=== PATIENT | female | born 1945 | race Caucasian/White ===

== ENCOUNTER 2016-07-06 00:56 | Inpatient (IN) | payer MEDICARE ==
[~2016-07-06] VITALS: Ht 147.3 cm; Wt 35.7 kg
[~2016-07-06 00:56] MED LIST: ALBU2.5V11 NEB; ALBU8.5H3 IH; ALEN70TA5 PO; ALPR-475 PO; ALPR1TAB2 PO; ASPI-496 PO; CARV-39 PO; CARV12.543 PO; CHOL10003 PO; DIPHENHYDRAMINE PO; ETOP20VI IV; FLUC200T PO; GUAI118L19 PO; IPRA3AMP NEB; KRIL1CAP22 PO; LOSA50TA6 PO; MAALOX PO; MULT-658 PO; ONDA4TAB10 PO; OXYC-302 PO; OXYC5CAP4 PO; PROC5TAB40 PO; ROSU20TA PO; SUCR1ORA2 PO; [UNRECOGNIZED DRUG - OTHER] PO
[2016-07-06] MEDS ORDERED: ALBUTEROL/IPRATROPIUM 2.5MG/0.5MG, 3 ML NPPB ONE (02:30)
[2016-07-06 02:51] LABS: BLOOD UREA NITROGEN 19 mg/dL (7-18)
[2016-07-06 02:56] LABS: IS PT STATUS REG ER OR PRE ER? YES
[2016-07-06 02:57] LABS: HEMOGLOBIN 7.9 g/dL (11.7-16.4)
[2016-07-06 03:29] LABS: DIFF TOTAL CELLS COUNTED 100 CELL DIFF
[2016-07-06 03:34] LABS: ANISOCYTOSIS 1+; VERIFY COUNTS? YES
[2016-07-06 03:36] LABS: OVALOCYTES 1+; POLYCHROMASIA 1+
[2016-07-06 06:05] VITALS: BP 157/86
[2016-07-06 06:51] VITALS: BP 115/54
[2016-07-06] MEDS: ALBUTEROL SULFATE 2.5 MG/3 ML NPPB SCH ×2 (07:55→18:40)
[2016-07-06] MEDS: ALPRazolam 1MG TABLET PO PRN ×2 (08:58→17:05)
[2016-07-06] MEDS ORDERED: PROCHLORPERAZINE 5 MG TABLET PO PRN (11:30)
[2016-07-06] MEDS ORDERED: ONDANSETRON ODT 4 MG PO PRN (11:30)
[2016-07-06] MEDS ORDERED: BISACODYL 10 MG SUPP PR PRN (12:00)
[2016-07-06] MEDS ORDERED: DOCUSATE 100 MG CAPSULE PO PRN (12:00)
[2016-07-06] MEDS ORDERED: PROMETHAZINE 25 MG/ML, 1ML IM PRN (12:00)
[2016-07-06] MEDS ORDERED: MORPHINE SULFATE 4 MG/ML, 1ML IVPush PRN (12:00)
[2016-07-06] MEDS ORDERED: ACETAMINOPHEN 325 MG TABLET PO PRN (12:00)
[2016-07-06] MEDS ORDERED: POLYETHYLENE GLYCOL 17 GM PACKET PO PRN (12:00)
[2016-07-06] MEDS ORDERED: ONDANSETRON 2MG/ML, 2ML IVP PRN (12:00)
[2016-07-06] MEDS ORDERED: POTASSIUM CHLORIDE 40 MEQ in SODIUM CHLORIDE 0.9% 500 ML IV ONE (12:00)
[2016-07-06] MEDS: DOXYCYCLINE 100 MG in DEXTROSE 5% 250 ML IV SCH ×2 (12:16→23:58)
[2016-07-06] MEDS: THIAMINE 200 MG in SODIUM CHLORIDE 0.9% 50 ML IV SCH (12:16)
[2016-07-06] MEDS: SODIUM CHLORIDE 0.9% 1,000 ML IV SCH (12:16)
[2016-07-06] MEDS: methylPREDNISolone SOD SUCC 125 MG/2 ML IVPush SCH ×3 (12:17→23:58)
[2016-07-06] MEDS: ENOXAPARIN 40 MG/0.4 ML SQ SCH (12:17)
[2016-07-06] MEDS ORDERED: ALBUTEROL SULFATE 2.5 MG/3 ML ONE ×2 (13:06→18:21)
[2016-07-06 13:50] VITALS: BP 139/64
[2016-07-06] MEDS: HYDROcodone/APAP 5/325 TABLET PO PRN (14:56)
[2016-07-06] MEDS: SUCRALFATE 1 GM/10 ML UDC PO SCH ×2 (16:36→22:20)
[2016-07-06 19:30] VITALS: BP 142/80
[2016-07-06] MEDS: DRONABINOL 5 MG CAPSULE PO SCH (22:20)
[2016-07-06] MEDS: CARVEDILOL 12.5 MG TABLET PO SCH (22:20)
[2016-07-06] MEDS: TEMAZEPAM 15 MG CAPSULE PO PRN (22:20)
[2016-07-07] MEDS: SODIUM CHLORIDE 0.9% 1,000 ML IV SCH ×2 (00:03→21:05)
[2016-07-07 03:04] LABS: HEMOGLOBIN 7.2 g/dL (11.7-16.4)
[2016-07-07 03:08] LABS: DIFF TOTAL CELLS COUNTED 100 CELL DIFF
[2016-07-07] MEDS: ALPRazolam 1MG TABLET PO PRN ×3 (03:32→15:11)
[2016-07-07 03:48] LABS: ANISOCYTOSIS 1+; VERIFY COUNTS? YES
[2016-07-07 03:49] LABS: POIKILOCYTOSIS 1+
[2016-07-07 03:52] LABS: ASPARTATE AMINO TRANSFERASE 11 U/L (15-37); BLOOD UREA NITROGEN 21 mg/dL (7-18)
[2016-07-07] MEDS: methylPREDNISolone SOD SUCC 125 MG/2 ML IVPush SCH ×4 (06:01→23:35)
[2016-07-07] MEDS ORDERED: MAGNESIUM SULFATE PMX 4GM/100M 100 ML IV ONE (08:00)
[2016-07-07] MEDS: HYDROcodone/APAP 5/325 TABLET PO PRN ×3 (08:56→19:33)
[2016-07-07] MEDS: SUCRALFATE 1 GM/10 ML UDC PO SCH ×3 (08:57→21:06)
[2016-07-07 09:12] VITALS: BP 128/65
[2016-07-07] MEDS: ALBUTEROL SULFATE 2.5 MG/3 ML NPPB SCH ×3 (11:05→19:00)
[2016-07-07] MEDS: DRONABINOL 5 MG CAPSULE PO SCH ×2 (11:18→21:06)
[2016-07-07] MEDS: SENNA/DOCUSATE TABLET PO SCH (11:20)
[2016-07-07] MEDS: CARVEDILOL 12.5 MG TABLET PO SCH ×2 (11:20→21:06)
[2016-07-07] MEDS: ENOXAPARIN 40 MG/0.4 ML SQ SCH (12:00)
[2016-07-07] MEDS: DOXYCYCLINE 100 MG in DEXTROSE 5% 250 ML IV SCH ×2 (13:23→23:35)
[2016-07-07 13:41] VITALS: BP 127/70
[2016-07-07] MEDS ORDERED: MAALOX/DIPHEN/LIDO 90 ML PO PRN (16:00)
[2016-07-07] MEDS: NYSTATIN 500,000 UNITS/5 ML UDC PO SCH ×2 (17:01→21:06)
[2016-07-07] MEDS: THIAMINE 200 MG in SODIUM CHLORIDE 0.9% 50 ML IV SCH (17:04)
[2016-07-07 19:23] VITALS: BP 155/87
[2016-07-07] MEDS: TEMAZEPAM 15 MG CAPSULE PO PRN (21:06)
[2016-07-08] VITALS (9 sets, daily range): BP systolic 132–173; BP diastolic 34–94
[2016-07-08] MEDS: ALPRazolam 1MG TABLET PO PRN ×4 (03:22→20:18)
[2016-07-08 03:40] LABS: BLOOD UREA NITROGEN 22 mg/dL (7-18)
[2016-07-08] MEDS: methylPREDNISolone SOD SUCC 125 MG/2 ML IVPush SCH ×4 (06:13→23:52)
[2016-07-08] MEDS: NYSTATIN 500,000 UNITS/5 ML UDC PO SCH ×4 (06:13→21:31)
[2016-07-08] MEDS: ALBUTEROL SULFATE 2.5 MG/3 ML NPPB SCH ×3 (06:55→22:00)
[2016-07-08] MEDS: SUCRALFATE 1 GM/10 ML UDC PO SCH ×3 (07:53→21:31)
[2016-07-08] MEDS: CARVEDILOL 12.5 MG TABLET PO SCH ×2 (07:54→21:31)
[2016-07-08] MEDS: SENNA/DOCUSATE TABLET PO SCH (07:54)
[2016-07-08] MEDS: DRONABINOL 5 MG CAPSULE PO SCH ×2 (07:59→21:31)
[2016-07-08] MEDS: HYDROcodone/APAP 5/325 TABLET PO PRN ×2 (07:59→17:32)
[2016-07-08] MEDS ORDERED: DIPHENHYDRAMINE 25 MG CAPSULE PO ONE (09:00)
[2016-07-08] MEDS: THIAMINE 200 MG in SODIUM CHLORIDE 0.9% 50 ML IV SCH (10:24)
[2016-07-08] MEDS: DOXYCYCLINE 100 MG in DEXTROSE 5% 250 ML IV SCH ×2 (11:33→23:52)
[2016-07-08] MEDS: ENOXAPARIN 40 MG/0.4 ML SQ SCH (11:34)
[2016-07-08 13:06] LABS: DIFF TOTAL CELLS COUNTED 100 CELL DIFF
[2016-07-08 13:33] LABS: VERIFY COUNTS? YES
[2016-07-08 13:34] LABS: ANISOCYTOSIS 1+; MICROCYTOSIS 1+
[2016-07-08] MEDS ORDERED: TBO-FILGRASTIM 300 MCG/0.5 ML SQ ONE (17:00)
[2016-07-08] MEDS ORDERED: FUROSEMIDE 20 MG/2 ML IV ONE (18:00)
[2016-07-08] MEDS: SODIUM CHLORIDE 0.9% 1,000 ML IV SCH (20:15)
[2016-07-08] MEDS: TEMAZEPAM 15 MG CAPSULE PO PRN (21:31)
[2016-07-09 02:54] VITALS: BP 160/80
[2016-07-09] MEDS ORDERED: FUROSEMIDE 20 MG/2 ML IV ONE (03:00)
[2016-07-09] MEDS: ALPRazolam 1MG TABLET PO PRN ×4 (03:28→23:34)
[2016-07-09 03:42] LABS: HEMOGLOBIN 11.8 g/dL (11.7-16.4)
[2016-07-09 03:45] LABS: BLOOD UREA NITROGEN 23 mg/dL (7-18)
[2016-07-09 03:55] LABS: DIFF TOTAL CELLS COUNTED 100 CELL DIFF
[2016-07-09 04:00] LABS: VERIFY COUNTS? YES
[2016-07-09 04:01] LABS: ANISOCYTOSIS 1+; MICROCYTOSIS 1+; OVALOCYTES 1+
[2016-07-09] MEDS: methylPREDNISolone SOD SUCC 125 MG/2 ML IVPush SCH ×4 (06:03→23:28)
[2016-07-09] MEDS: NYSTATIN 500,000 UNITS/5 ML UDC PO SCH ×4 (06:03→21:39)
[2016-07-09] MEDS: ALBUTEROL SULFATE 2.5 MG/3 ML NPPB SCH ×2 (07:45→18:21)
[2016-07-09 08:05] VITALS: BP 152/91
[2016-07-09] MEDS: SUCRALFATE 1 GM/10 ML UDC PO SCH ×3 (08:14→21:39)
[2016-07-09] MEDS: SENNA/DOCUSATE TABLET PO SCH (08:15)
[2016-07-09] MEDS: CARVEDILOL 12.5 MG TABLET PO SCH ×2 (08:15→21:39)
[2016-07-09] MEDS: DRONABINOL 5 MG CAPSULE PO SCH ×2 (08:21→21:39)
[2016-07-09] MEDS: HYDROcodone/APAP 5/325 TABLET PO PRN ×2 (10:23→16:59)
[2016-07-09] MEDS: THIAMINE 200 MG in SODIUM CHLORIDE 0.9% 50 ML IV SCH (11:29)
[2016-07-09] MEDS: DOXYCYCLINE 100 MG in DEXTROSE 5% 250 ML IV SCH ×2 (12:35→23:28)
[2016-07-09] MEDS: ENOXAPARIN 40 MG/0.4 ML SQ SCH (12:36)
[2016-07-09 14:01] VITALS: BP 172/84
[2016-07-09 18:46] VITALS: BP 175/91
[2016-07-09] MEDS: TEMAZEPAM 15 MG CAPSULE PO PRN (21:39)
[2016-07-10 02:56] VITALS: BP 174/89
[2016-07-10] MEDS: ALPRazolam 1MG TABLET PO PRN ×2 (04:02→10:38)
[2016-07-10 04:21] LABS: BLOOD UREA NITROGEN 27 mg/dL (7-18)
[2016-07-10 04:26] LABS: HEMOGLOBIN 12.8 g/dL (11.7-16.4)
[2016-07-10 04:37] LABS: DIFF TOTAL CELLS COUNTED 100 CELL DIFF
[2016-07-10 04:41] LABS: VERIFY COUNTS? YES
[2016-07-10 04:42] LABS: ANISOCYTOSIS 1+; POLYCHROMASIA 1+
[2016-07-10 04:43] LABS: OVALOCYTES 1+
[2016-07-10] MEDS: NYSTATIN 500,000 UNITS/5 ML UDC PO SCH ×2 (05:36→11:46)
[2016-07-10] MEDS: methylPREDNISolone SOD SUCC 125 MG/2 ML IVPush SCH ×2 (05:36→11:30)
[2016-07-10 07:18] VITALS: BP 173/99
[2016-07-10] MEDS ORDERED: LABETALOL 5MG/ML, 20ML IVPush ONE (07:30)
[2016-07-10] MEDS: THIAMINE 200 MG in SODIUM CHLORIDE 0.9% 50 ML IV SCH (08:18)
[2016-07-10] MEDS: SUCRALFATE 1 GM/10 ML UDC PO SCH ×2 (08:18→11:46)
[2016-07-10] MEDS: SENNA/DOCUSATE TABLET PO SCH (08:19)
[2016-07-10] MEDS: CARVEDILOL 12.5 MG TABLET PO SCH (08:19)
[2016-07-10] MEDS: DRONABINOL 5 MG CAPSULE PO SCH (08:23)
[2016-07-10] MEDS: ALBUTEROL SULFATE 2.5 MG/3 ML NPPB SCH (09:20)
[2016-07-10] MEDS ORDERED: ALBU2.5V NPPB (10:25)
[2016-07-10] MEDS ORDERED: NYST1000 PO (10:25)
[2016-07-10] MEDS ORDERED: [UNRECOGNIZED DRUG - OTHER] PO (10:25)
[2016-07-10] MEDS ORDERED: PRED10TA PO (10:25)
[2016-07-10] MEDS ORDERED: TEMA15CA6 PO (10:25)
[2016-07-10] MEDS ORDERED: DIPHENHYDRAMINE PO (10:25)
[2016-07-10] MEDS ORDERED: DOXY100C2 PO (10:25)
[2016-07-10] MEDS ORDERED: MAALOX PO (10:25)
[2016-07-10] MEDS ORDERED: ALPR1TAB2 PO (10:25)
[2016-07-10] MEDS ORDERED: DRON5CAP15 PO (10:25)
[2016-07-10] MEDS ORDERED: IPRA3AMP NPPB (10:28)
[2016-07-10] MEDS ORDERED: POTASSIUM CHLORIDE 20 MEQ TAB.ER.PRT PO ONE (10:30)
[2016-07-10] MEDS ORDERED: ALBUTEROL/IPRATROPIUM 2.5MG/0.5MG, 3 ML NPPB SCH (11:00)
[2016-07-10] MEDS: DOXYCYCLINE 100 MG in DEXTROSE 5% 250 ML IV SCH (11:30)
[2016-07-10] MEDS: HYDROcodone/APAP 5/325 TABLET PO PRN (11:50)
[2016-07-10] MEDS ORDERED: ENOXAPARIN 30 MG/0.3 ML SQ SCH (12:00)
== END 2016-07-10 13:25 | disposition home health service (06) | DRG 811 ==
LOC: ED 04:26 → EDIP 05:06 → 3NW 05:55
PROVIDERS: ADMIT Internal Medicine; ATTEND Internal Medicine
PROC: 30233N1 Transfusion of Nonautologous Red Blood Cells into Peripheral Vein, Percutaneous Approach (ICD-10-PCS; principal; 2016-07-06)
PROC: 0T9B70Z Drainage of Bladder with Drainage Device, Via Natural or Artificial Opening (ICD-10-PCS; 2016-07-06)
DX: D64.81 Anemia due to antineoplastic chemotherapy (principal); E43 Unspecified severe protein-calorie malnutrition; J44.0 Chronic obstructive pulmonary disease with (acute) lower respiratory infection; C34.90 Malignant neoplasm of unspecified part of unspecified bronchus or lung; E87.1 Hypo-osmolality and hyponatremia; J96.10 Chronic respiratory failure, unspecified whether with hypoxia or hypercapnia; R64 Cachexia; Z68.1 Body mass index [BMI] 19.9 or less, adult; J96.11 Chronic respiratory failure with hypoxia; J44.1 Chronic obstructive pulmonary disease with (acute) exacerbation; J20.9 Acute bronchitis, unspecified; Z66 Do not resuscitate; Z85.118 Personal history of other malignant neoplasm of bronchus and lung; E83.42 Hypomagnesemia; E87.6 Hypokalemia; M81.0 Age-related osteoporosis without current pathological fracture; T45.1X5A Adverse effect of antineoplastic and immunosuppressive drugs, initial encounter; R00.0 Tachycardia, unspecified; I10 Essential (primary) hypertension; F41.9 Anxiety disorder, unspecified; E78.5 Hyperlipidemia, unspecified; D70.1 Agranulocytosis secondary to cancer chemotherapy; E86.0 Dehydration; T38.0X5A Adverse effect of glucocorticoids and synthetic analogues, initial encounter; Z80.1 Family history of malignant neoplasm of trachea, bronchus and lung; Z82.0 Family history of epilepsy and other diseases of the nervous system; Z87.891 Personal history of nicotine dependence; Z99.81 Dependence on supplemental oxygen; Z90.49 Acquired absence of other specified parts of digestive tract; Z90.710 Acquired absence of both cervix and uterus
CPT/HCPCS: 36415; 71010; 80048; 80053; 81003; 82040; 83735; 84100; 84484; 85025; 86850; 86900; 86923; 93005; 94640; 99285; J1650; J3411; J3480; J7060; J7613; J7620; Q0167; J1447; J1940; J2930; J3475; J7030; J7040; J7512; P9040; Q0163

== ENCOUNTER → 2016-08-01 | Outpatient (CLI) | payer MEDICARE ==
[~2016-08-01] MED LIST changes: +ALBU2.5V NPPB; +DOXY100C2 PO; +DRON5CAP15 PO; +IPRA3AMP NPPB; +NYST1000 PO; +PRED10TA PO; +TEMA15CA6 PO
== END | disposition home or self-care (01) ==
LOC: RAD 15:10
PROVIDERS: ATTEND Internal Medicine Hematology & Oncology
DX: C34.90 Malignant neoplasm of unspecified part of unspecified bronchus or lung (principal); J43.8 Other emphysema; J98.4 Other disorders of lung
CPT/HCPCS: 71260; J1642

== ENCOUNTER → 2016-10-14 | Outpatient (CLI) | payer MEDICARE ==
[~2016-10-14] MED LIST changes: +OMNIPAQUE 350 MG/ML, 100ML BOTTLE ONE
== END | disposition home or self-care (01) ==
LOC: CFH 13:39
PROVIDERS: ATTEND Internal Medicine Hematology & Oncology
DX: C34.90 Malignant neoplasm of unspecified part of unspecified bronchus or lung (principal); R91.8 Other nonspecific abnormal finding of lung field; R59.0 Localized enlarged lymph nodes; J43.2 Centrilobular emphysema; K59.00 Constipation, unspecified
CPT/HCPCS: 71260; 74177; 82565; Q9967

== ENCOUNTER → 2016-11-12 | Outpatient (CLI) | payer MEDICARE ==
[~2016-11-12] MED LIST changes: -OMNIPAQUE 350 MG/ML, 100ML BOTTLE ONE
== END | disposition home or self-care (01) ==
LOC: CFH 15:17
PROVIDERS: ATTEND Nurse Practitioner Primary Care
DX: C34.90 Malignant neoplasm of unspecified part of unspecified bronchus or lung (principal); J44.9 Chronic obstructive pulmonary disease, unspecified; J98.11 Atelectasis; E78.2 Mixed hyperlipidemia; R79.9 Abnormal finding of blood chemistry, unspecified; E88.81 Metabolic syndrome and other insulin resistance; I10 Essential (primary) hypertension; R01.1 Cardiac murmur, unspecified; M84.88 Other disorders of continuity of bone, other site; Z72.0 Tobacco use; Z78.0 Asymptomatic menopausal state
CPT/HCPCS: 71020

== ENCOUNTER → 2016-12-16 | Outpatient (CLI) | payer MEDICARE ==
[~2016-12-16] MED LIST changes: -ALBU8.5H3 IH; +ALBU8.5H8 IH; +OMNIPAQUE 350 MG/ML, 100ML BOTTLE ONE; +OXYC5CAP2 PO; -OXYC5CAP4 PO; -SUCR1ORA2 PO; +SUCR1ORA5 PO
== END | disposition home or self-care (01) ==
LOC: CFH 14:36
PROVIDERS: ATTEND Internal Medicine Hematology & Oncology
DX: J47.9 Bronchiectasis, uncomplicated (principal); J98.11 Atelectasis; C34.90 Malignant neoplasm of unspecified part of unspecified bronchus or lung
CPT/HCPCS: 71260; Q9967; 82565

== ENCOUNTER → 2017-03-10 | Outpatient (CLI) | payer MEDICARE | END | disposition home or self-care (01) | LOC: CFH 13:42 | PROVIDERS: ATTEND Internal Medicine Hematology & Oncology | DX: J43.9 Emphysema, unspecified (principal); M51.36 Other intervertebral disc degeneration, lumbar region; I25.10 Atherosclerotic heart disease of native coronary artery without angina pectoris; I70.0 Atherosclerosis of aorta; I70.203 Unspecified atherosclerosis of native arteries of extremities, bilateral legs; C34.90 Malignant neoplasm of unspecified part of unspecified bronchus or lung; Z90.710 Acquired absence of both cervix and uterus | CPT/HCPCS: 71260; 74177; Q9967 ==

== ENCOUNTER → 2017-04-02 | Outpatient (CLI) | payer MEDICARE ==
[~2017-04-02] MED LIST changes: -OMNIPAQUE 350 MG/ML, 100ML BOTTLE ONE
== END | disposition home or self-care (01) ==
LOC: PETCFH 11:14
PROVIDERS: ATTEND Internal Medicine Hematology & Oncology
DX: C34.90 Malignant neoplasm of unspecified part of unspecified bronchus or lung (principal)
CPT/HCPCS: 78306; A9503

== ENCOUNTER → 2017-04-08 | Outpatient (CLI) | payer MEDICARE ==
[~2017-04-08] MED LIST changes: +ALPRazolam 1MG TABLET ONE; +GADOBUTROL 7.5 MMOL/7.5 ML PFS ONE
== END | disposition home or self-care (01) ==
LOC: RAD 13:27
PROVIDERS: ATTEND Internal Medicine Hematology & Oncology
DX: I10 Essential (primary) hypertension (principal); C71.9 Malignant neoplasm of brain, unspecified; G31.9 Degenerative disease of nervous system, unspecified
CPT/HCPCS: 70553; A9585

== ENCOUNTER → 2017-06-09 | Outpatient (CLI) | payer MEDICARE ==
[~2017-06-09] MED LIST changes: -ALPRazolam 1MG TABLET ONE; -GADOBUTROL 7.5 MMOL/7.5 ML PFS ONE; +OMNIPAQUE 350 MG/ML, 100ML BOTTLE ONE
== END | disposition home or self-care (01) ==
LOC: CFH 11:11
PROVIDERS: ATTEND Internal Medicine Hematology & Oncology
DX: J43.9 Emphysema, unspecified (principal); J47.9 Bronchiectasis, uncomplicated; I70.0 Atherosclerosis of aorta; C34.90 Malignant neoplasm of unspecified part of unspecified bronchus or lung
CPT/HCPCS: 71260; 74177; 82565; Q9967

== ENCOUNTER → 2017-06-23 | Outpatient (CLI) | payer MEDICARE ==
[~2017-06-23] MED LIST changes: -OMNIPAQUE 350 MG/ML, 100ML BOTTLE ONE
== END ==
LOC: ROC 11:12
PROVIDERS: ATTEND Radiology Radiation Oncology
DX: C34.90 Malignant neoplasm of unspecified part of unspecified bronchus or lung (principal); Z79.82 Long term (current) use of aspirin; Z92.3 Personal history of irradiation; Z99.81 Dependence on supplemental oxygen
CPT/HCPCS: G0463

== ENCOUNTER 2017-09-11 15:41 | Emergency (ER) | payer MEDICARE ==
[~2017-09-11] VITALS: Ht 149.9 cm; Wt 40.0 kg
[2017-09-11] MEDS ORDERED: ALBUTEROL SULFATE 2.5 MG/3 ML ONE (16:09)
[2017-09-11 16:29] LABS: BASOPHILS # (AUTO) 0.03 x10^3/uL (0-0.1); BASOPHILS % (AUTO) 0 % (0-1); EOSINOPHILS # (AUTO) 0.27 x10^3/uL (0-0.4); EOSINOPHILS % (AUTO) 3 % (1-7); LYMPHOCYTES % (AUTO) 12 % (22-44); MD NO; MEAN CORPUSCULAR HEMOGLOBIN 32.3 pg (27.0-34.8); MEAN CORPUSCULAR VOLUME 97.7 fL (80-100); MEAN PLATELET VOLUME 7.4 fL (7.4-10.4); MONOCYTES # (AUTO) 0.77 x10^3/uL (0.2-0.8); MONOCYTES % (AUTO) 8 % (2-9); NEUTROPHILS # (AUTO) 6.98 x10^3/uL (1.8-6.8); NEUTROPHILS % (AUTO) 76 % (42-75); PLATELET COUNT 310 x10^3/uL (130-400); RED BLOOD COUNT 2.74 x10^6/uL (3.82-5.3); RED CELL DISTRIBUTION WIDTH 13.5 % (9.6-15.2)
[2017-09-11] MEDS ORDERED: ALBUTEROL SULFATE 2.5 MG/3 ML NPPB ONE (16:30)
[2017-09-11 16:42] LABS: ALBUMIN 2.6 g/dL (3.4-5.0); ANION GAP 1 mmol/L (5-15); CALCIUM 8.8 mg/dL (8.5-10.1); CHLORIDE 99 mmol/L (98-107)
[2017-09-11 16:46] LABS: TROPONIN I < 0.015 ng/mL (0.000-0.045)
[2017-09-11] MEDS ORDERED: SODIUM CHLORIDE 0.9% 1,000ML IVBOLUS ONE (17:00)
[2017-09-11] MEDS ORDERED: SODIUM CHLORIDE FLUSH 10ML SYR IVF ONE (17:00)
[2017-09-11 19:34] VITALS: BP 127/73
[2017-09-11] MEDS ORDERED: SODIUM BICARB 8.4%, 50ML SYRINGE ONE (19:38)
[2017-09-11] MEDS ORDERED: DEXTROSE 50%, 50ML SYRINGE ONE (19:38)
[2017-09-11] MEDS ORDERED: CALCIUM CHLORIDE 10%, 10ML SYR ONE (19:38)
[2017-09-11] MEDS ORDERED: INSULIN REGULAR 100 UNITS/ML, 3ML VIAL ONE (19:39)
[2017-09-11] MEDS ORDERED: INSULIN REGULAR 100 UNITS/ML, 3ML VIAL IVPush ONE (20:00)
[2017-09-11] MEDS ORDERED: CALCIUM CHLORIDE 6.8 MEQ in SODIUM CHLORIDE 0.9% 100 ML IV ONE (20:00)
[2017-09-11] MEDS ORDERED: CALCIUM CHLORIDE 10%, 10ML SYR IVPush ONE (20:00)
[2017-09-11] MEDS ORDERED: SODIUM BICARB 8.4%, 50ML SYRINGE IVPush ONE (20:00)
[2017-09-11] MEDS ORDERED: DEXTROSE 50%, 50ML SYRINGE IVPush ONE (20:00)
== END 2017-09-11 20:43 | disposition left against medical advice (07) ==
LOC: ED 18:16
DX: J43.9 Emphysema, unspecified (principal); J44.1 Chronic obstructive pulmonary disease with (acute) exacerbation; E86.0 Dehydration; E87.5 Hyperkalemia; D64.9 Anemia, unspecified; E78.5 Hyperlipidemia, unspecified; I10 Essential (primary) hypertension; Z85.118 Personal history of other malignant neoplasm of bronchus and lung
CPT/HCPCS: 36415; 71045; 71275; 80048; 82040; 83605; 83880; 84132; 84145; 84484; 85025; 85379; 87040; 93005; 94640; 96361; 96374; 96375; 99291; J7030; J7512

== ENCOUNTER → 2017-09-29 | Outpatient (CLI) | payer MEDICARE | LOC: ROC 09:30 | PROVIDERS: ATTEND Radiology Radiation Oncology | DX: Z08 Encounter for follow-up examination after completed treatment for malignant neoplasm (principal); Z85.118 Personal history of other malignant neoplasm of bronchus and lung | CPT/HCPCS: G0463 ==

== ENCOUNTER → 2017-10-23 | Outpatient (CLI) | payer MEDICARE | END | disposition home or self-care (01) | LOC: CFH 15:50 | PROVIDERS: ATTEND Internal Medicine | DX: I35.8 Other nonrheumatic aortic valve disorders (principal); I11.0 Hypertensive heart disease with heart failure; I50.9 Heart failure, unspecified | CPT/HCPCS: 93306 ==

== ENCOUNTER 2017-10-30 16:24 | Inpatient (IN) | payer MEDICARE ==
[~2017-10-30] VITALS: Ht 147.3 cm; Wt 37.7 kg
[2017-10-30 17:16] LABS: BASOPHILS # (AUTO) 0.04 x10^3/uL (0-0.1); BASOPHILS % (AUTO) 0 % (0-1); EOSINOPHILS # (AUTO) 0.23 x10^3/uL (0-0.4); EOSINOPHILS % (AUTO) 2 % (1-7); LYMPHOCYTES # (AUTO) 1.23 x10^3/uL (1-3.4); LYMPHOCYTES % (AUTO) 10 % (22-44); MD NO; MEAN CORPUSCULAR HEMOGLOBIN 32.4 pg (27.0-34.8); MEAN CORPUSCULAR HGB CONC 32.7 g/dL (32.4-35.8); MEAN CORPUSCULAR VOLUME 98.9 fL (80-100); MONOCYTES # (AUTO) 0.64 x10^3/uL (0.2-0.8); MONOCYTES % (AUTO) 5 % (2-9); NEUTROPHILS # (AUTO) 9.83 x10^3/uL (1.8-6.8); NEUTROPHILS % (AUTO) 82 % (42-75); PLATELET COUNT 302 x10^3/uL (130-400); RED BLOOD COUNT 2.64 x10^6/uL (3.82-5.3); RED CELL DISTRIBUTION WIDTH 14.9 % (9.6-15.2)
[2017-10-30 17:19] LABS: INTERNATIONAL NORMALIZED RATIO 0.91 (0.93-1.1); PROTHROMBIN TIME 9.5 Seconds (9.6-11.5)
[2017-10-30 17:22] LABS: ALBUMIN 3.2 g/dL (3.4-5.0); ANION GAP 2 mmol/L (5-15); CALCIUM 8.7 mg/dL (8.5-10.1); CHLORIDE 106 mmol/L (98-107); CREATININE 1.49 mg/dL (0.55-1.02)
[2017-10-30 17:25] LABS: TROPONIN I < 0.015 ng/mL (0.000-0.045)
[2017-10-30] MEDS ORDERED: INSULIN REGULAR 100 UNITS/ML, 3ML VIAL ONE (17:54)
[2017-10-30] MEDS ORDERED: SODIUM BICARB 8.4%, 50ML SYRINGE ONE (17:54)
[2017-10-30] MEDS ORDERED: DEXTROSE 50%, 50ML SYRINGE ONE (17:54)
[2017-10-30] MEDS ORDERED: INSULIN REGULAR 100 UNITS/ML, 3ML VIAL IVPush ONE (18:00)
[2017-10-30] MEDS ORDERED: SODIUM BICARB 8.4%, 50ML SYRINGE IVPush ONE (18:00)
[2017-10-30] MEDS ORDERED: SODIUM CHLORIDE 0.9% 1,000ML IVBOLUS ONE (18:00)
[2017-10-30] MEDS ORDERED: ALBUTEROL SULFATE 2.5 MG/3 ML NPPB ONE (18:00)
[2017-10-30] MEDS ORDERED: DEXTROSE 50%, 50ML SYRINGE IVPush ONE (18:00)
[2017-10-30] MEDS ORDERED: FLUO20CA19 PO (18:26)
[2017-10-30] MEDS ORDERED: ROSU5TAB PO (18:27)
[2017-10-30] MEDS ORDERED: ONDANSETRON ODT 4 MG PO PRN (19:00)
[2017-10-30] MEDS ORDERED: ALBUTEROL SULFATE 2.5 MG/3 ML NPPB PRN (19:00)
[2017-10-30] MEDS ORDERED: DOCUSATE 100 MG CAPSULE PO PRN (19:00)
[2017-10-30] MEDS ORDERED: ALBUTEROL/IPRATROPIUM 2.5MG/0.5MG, 3 ML NPPB SCH (19:00)
[2017-10-30] MEDS ORDERED: ONDANSETRON 2MG/ML, 2ML IVPush PRN (19:00)
[2017-10-30] MEDS ORDERED: BISACODYL 10 MG SUPP PR PRN (19:00)
[2017-10-30] MEDS ORDERED: LABETALOL 5MG/ML, 20ML IVPush PRN (19:00)
[2017-10-30] MEDS ORDERED: ALBUTEROL SULFATE 2.5 MG/3 ML ONE (19:17)
[2017-10-30] MEDS: SODIUM CHLORIDE 0.9% 1,000 ML IV SCH (19:42)
[2017-10-30 20:15] VITALS: BP 143/71
[2017-10-30] MEDS: ATORVASTATIN 10 MG TABLET PO SCH (20:48)
[2017-10-30] MEDS: ACETAMINOPHEN 325 MG TABLET PO PRN ×2 (20:49→21:07)
[2017-10-30] MEDS: ALPRazolam 1MG TABLET PO PRN ×2 (20:49→21:05)
[2017-10-30] MEDS: CARVEDILOL 12.5 MG TABLET PO SCH (20:49)
[2017-10-31 00:24] VITALS: BP 143/71
[2017-10-31 00:58] VITALS: BP 112/60
[2017-10-31] MEDS: IPRATROPIUM 0.5 MG/2.5 ML INHA HHN SCH ×3 (03:20→13:30)
[2017-10-31 05:47] LABS: BASOPHILS % (AUTO) 0 % (0-1); EOSINOPHILS # (AUTO) 0.27 x10^3/uL (0-0.4); EOSINOPHILS % (AUTO) 3 % (1-7); LYMPHOCYTES % (AUTO) 12 % (22-44); MD NO; MEAN CORPUSCULAR HEMOGLOBIN 32.1 pg (27.0-34.8); MEAN CORPUSCULAR HGB CONC 32.5 g/dL (32.4-35.8); MEAN CORPUSCULAR VOLUME 98.8 fL (80-100); MEAN PLATELET VOLUME 7.7 fL (7.4-10.4); MONOCYTES # (AUTO) 0.49 x10^3/uL (0.2-0.8); MONOCYTES % (AUTO) 5 % (2-9); NEUTROPHILS # (AUTO) 7.78 x10^3/uL (1.8-6.8); NEUTROPHILS % (AUTO) 80 % (42-75); PLATELET COUNT 257 x10^3/uL (130-400); RED BLOOD COUNT 2.32 x10^6/uL (3.82-5.3); RED CELL DISTRIBUTION WIDTH 14.5 % (9.6-15.2)
[2017-10-31 05:56] LABS: CHLORIDE 110 mmol/L (98-107)
[2017-10-31 06:06] LABS: ALANINE AMINOTRANSFERASE 10 U/L (12-78); ALBUMIN 2.5 g/dL (3.4-5.0); ALKALINE PHOSPHATASE 59 U/L (45-117); ANION GAP 4 mmol/L (5-15); BILIRUBIN,TOTAL 0.2 mg/dL (0.2-1.0); CALCIUM 7.7 mg/dL (8.5-10.1); CREATININE 1.17 mg/dL (0.55-1.02); TOTAL PROTEIN 5.7 g/dL (6.4-8.2)
[2017-10-31 07:18] VITALS: BP 129/73
[2017-10-31] MEDS ORDERED: FLUOXETINE HCL 20 MG CAPSULE PO SCH (09:00)
[2017-10-31] MEDS: SENNA/DOCUSATE TABLET PO SCH (09:00)
[2017-10-31] MEDS: SODIUM CHLORIDE 0.9% 1,000 ML IV SCH (09:21)
[2017-10-31] MEDS: CARVEDILOL 12.5 MG TABLET PO SCH ×2 (09:22→21:40)
[2017-10-31] MEDS: ALPRazolam 1MG TABLET PO PRN (09:22)
[2017-10-31] MEDS ORDERED: CALCIUM CHLORIDE IV ONE (12:30)
[2017-10-31] MEDS ORDERED: INSULIN REGULAR 100 UNITS/ML, 3ML VIAL IVPush ONE (12:30)
[2017-10-31] MEDS ORDERED: DEXTROSE 50%, 50ML SYRINGE IVPush ONE (12:30)
[2017-10-31] MEDS ORDERED: SODIUM CHLORIDE 0.9% IV ONE (12:30)
[2017-10-31] MEDS ORDERED: SODIUM POLYSTYRENE SULFONATE ORAL SUSP PO ONE (12:30)
[2017-10-31] MEDS: SODIUM CHLORIDE 0.45% 1,000 ML IV SCH (12:30)
[2017-10-31] MEDS: FLUOXETINE HCL 20 MG CAPSULE PO SCH (12:34)
[2017-10-31 15:19] VITALS: BP 109/64
[2017-10-31] MEDS ORDERED: MAGNESIUM SULFATE PMX 2GM/50ML 50 ML IV ONE (16:30)
[2017-10-31] MEDS: ALBUTEROL/IPRATROPIUM 2.5MG/0.5MG, 3 ML NPPB SCH (18:20)
[2017-10-31 18:53] VITALS: BP 136/70
[2017-10-31 19:31] LABS: CHLORIDE 109 mmol/L (98-107)
[2017-10-31 19:32] LABS: ANION GAP 4 mmol/L (5-15); CALCIUM 8.6 mg/dL (8.5-10.1); CREATININE 1.24 mg/dL (0.55-1.02)
[2017-10-31] MEDS: ATORVASTATIN 10 MG TABLET PO SCH (21:37)
[2017-11-01] MEDS: SODIUM CHLORIDE 0.45% 1,000 ML IV SCH ×2 (04:16→17:27)
[2017-11-01 04:23] VITALS: BP 166/74
[2017-11-01] MEDS: ALBUTEROL/IPRATROPIUM 2.5MG/0.5MG, 3 ML NPPB SCH ×2 (07:05→20:40)
[2017-11-01 07:31] VITALS: BP 145/79
[2017-11-01 07:41] LABS: ANION GAP 4 mmol/L (5-15); CALCIUM 8.1 mg/dL (8.5-10.1); CHLORIDE 109 mmol/L (98-107); CREATININE 1.05 mg/dL (0.55-1.02)
[2017-11-01] MEDS: FLUTICASONE/VILANTEROL 200-25MCG/INH INH SCH ×2 (09:00→11:56)
[2017-11-01] MEDS ORDERED: SODIUM POLYSTYRENE SULFONATE ORAL SUSP PO ONE (09:00)
[2017-11-01] MEDS: SENNA/DOCUSATE TABLET PO SCH (09:00)
[2017-11-01] MEDS: ALPRazolam 1MG TABLET PO PRN (09:43)
[2017-11-01] MEDS: CARVEDILOL 6.25 MG TABLET PO SCH ×2 (09:43→20:08)
[2017-11-01] MEDS: FLUOXETINE HCL 20 MG CAPSULE PO SCH (11:57)
[2017-11-01 13:50] VITALS: BP 151/70
[2017-11-01 14:58] LABS: ANION GAP 5 mmol/L (5-15); CALCIUM 8.6 mg/dL (8.5-10.1); CHLORIDE 109 mmol/L (98-107); CREATININE 1.01 mg/dL (0.55-1.02)
[2017-11-01] MEDS ORDERED: VERAPAMIL 2.5 MG/ML, 2ML IVPush PRN (18:00)
[2017-11-01] MEDS: ACETAMINOPHEN 325 MG TABLET PO PRN (18:20)
[2017-11-01 19:13] VITALS: BP 131/64
[2017-11-01] MEDS: ATORVASTATIN 10 MG TABLET PO SCH (20:08)
[2017-11-02] VITALS (9 sets, daily range): BP systolic 125–180; BP diastolic 59–84
[2017-11-02 05:03] LABS: MEAN CORPUSCULAR HEMOGLOBIN 32.1 pg (27.0-34.8); MEAN CORPUSCULAR HGB CONC 32.2 g/dL (32.4-35.8); MEAN CORPUSCULAR VOLUME 99.7 fL (80-100); MEAN PLATELET VOLUME 7.9 fL (7.4-10.4); PLATELET COUNT 247 x10^3/uL (130-400); RED BLOOD COUNT 2.24 x10^6/uL (3.82-5.3); RED CELL DISTRIBUTION WIDTH 14.8 % (9.6-15.2)
[2017-11-02 05:05] LABS: ANION GAP 5 mmol/L (5-15); CALCIUM 7.8 mg/dL (8.5-10.1); CHLORIDE 107 mmol/L (98-107); CREATININE 1.02 mg/dL (0.55-1.02)
[2017-11-02 05:56] LABS: BASOPHILS # (AUTO) 0.02 x10^3/uL (0-0.1); BASOPHILS % (AUTO) 0 % (0-1); EOSINOPHILS # (AUTO) 0.33 x10^3/uL (0-0.4); EOSINOPHILS % (AUTO) 4 % (1-7); LYMPHOCYTES # (AUTO) 1.14 x10^3/uL (1-3.4); LYMPHOCYTES % (AUTO) 15 % (22-44); MD SCAN; MONOCYTES # (AUTO) 0.38 x10^3/uL (0.2-0.8); MONOCYTES % (AUTO) 5 % (2-9); NEUTROPHILS # (AUTO) 5.92 x10^3/uL (1.8-6.8); NEUTROPHILS % (AUTO) 76 % (42-75)
[2017-11-02] MEDS: SODIUM CHLORIDE 0.45% 1,000 ML IV SCH (07:54)
[2017-11-02] MEDS: FLUTICASONE/VILANTEROL 200-25MCG/INH INH SCH (07:59)
[2017-11-02] MEDS: IRON SUCROSE COMPLEX 100MG/5ML IV SCH (08:00)
[2017-11-02] MEDS ORDERED: IRON DEXTRAN IV PER PHARMACY IV PRN (08:00)
[2017-11-02] MEDS: CARVEDILOL 6.25 MG TABLET PO SCH (08:01)
[2017-11-02] MEDS: SENNA/DOCUSATE TABLET PO SCH (08:02)
[2017-11-02] MEDS: ALPRazolam 1MG TABLET PO PRN (08:17)
[2017-11-02] MEDS: ALBUTEROL/IPRATROPIUM 2.5MG/0.5MG, 3 ML NPPB SCH ×4 (09:35→19:37)
[2017-11-02] MEDS: ANORO ELLIPTA 62.5 MCG/25 MCG HOMEINH SCH (09:57)
[2017-11-02] MEDS: ACETAMINOPHEN 325 MG TABLET PO PRN ×2 (10:05→10:06)
[2017-11-02] MEDS ORDERED: SODIUM CHLORIDE 0.45% 1,000 ML IV SCH (12:30)
[2017-11-02] MEDS: FLUOXETINE HCL 20 MG CAPSULE PO SCH (12:42)
[2017-11-02 13:27] LABS: ANION GAP 4 mmol/L (5-15); CALCIUM 8.1 mg/dL (8.5-10.1); CHLORIDE 108 mmol/L (98-107); CREATININE 0.94 mg/dL (0.55-1.02)
[2017-11-02] MEDS ORDERED: FUROSEMIDE 20 MG/2 ML IV ONE (17:30)
[2017-11-02] MEDS: ATORVASTATIN 10 MG TABLET PO SCH (20:37)
[2017-11-02] MEDS: CARVEDILOL 12.5 MG TABLET PO SCH (20:38)
[2017-11-03 02:59] VITALS: BP 132/65
[2017-11-03 05:18] LABS: ANION GAP 5 mmol/L (5-15); CALCIUM 8.2 mg/dL (8.5-10.1); CHLORIDE 106 mmol/L (98-107)
[2017-11-03 05:20] LABS: BASOPHILS # (AUTO) 0.09 x10^3/uL (0-0.1); BASOPHILS % (AUTO) 1 % (0-1); CREATININE 0.82 mg/dL (0.55-1.02); EOSINOPHILS # (AUTO) 0.35 x10^3/uL (0-0.4); EOSINOPHILS % (AUTO) 3 % (1-7); LYMPHOCYTES # (AUTO) 1.02 x10^3/uL (1-3.4); LYMPHOCYTES % (AUTO) 8 % (22-44); MD NO; MEAN CORPUSCULAR HEMOGLOBIN 30.7 pg (27.0-34.8); MEAN CORPUSCULAR HGB CONC 32.6 g/dL (32.4-35.8); MEAN CORPUSCULAR VOLUME 94.1 fL (80-100); MEAN PLATELET VOLUME 7.9 fL (7.4-10.4); MONOCYTES # (AUTO) 0.65 x10^3/uL (0.2-0.8); MONOCYTES % (AUTO) 5 % (2-9); NEUTROPHILS # (AUTO) 10.63 x10^3/uL (1.8-6.8); NEUTROPHILS % (AUTO) 83 % (42-75); PLATELET COUNT 246 x10^3/uL (130-400); RED BLOOD COUNT 3.05 x10^6/uL (3.82-5.3)
[2017-11-03] MEDS: ALBUTEROL/IPRATROPIUM 2.5MG/0.5MG, 3 ML NPPB SCH ×2 (06:50→20:07)
[2017-11-03 07:09] VITALS: BP 153/70
[2017-11-03] MEDS: ANORO ELLIPTA 62.5 MCG/25 MCG HOMEINH SCH (08:45)
[2017-11-03] MEDS: SENNA/DOCUSATE TABLET PO SCH (08:45)
[2017-11-03] MEDS: IRON SUCROSE COMPLEX 100MG/5ML IV SCH (08:53)
[2017-11-03] MEDS: ALPRazolam 1MG TABLET PO PRN ×3 (08:53→20:51)
[2017-11-03] MEDS: CARVEDILOL 12.5 MG TABLET PO SCH ×2 (08:53→20:52)
[2017-11-03] MEDS: FLUOXETINE HCL 20 MG CAPSULE PO SCH (11:55)
[2017-11-03] MEDS: DILTIAZEM 30 MG TABLET PO SCH ×2 (11:55→18:09)
[2017-11-03 13:55] VITALS: BP 107/56
[2017-11-03] MEDS ORDERED: MEGE800O PO (15:19)
[2017-11-03 20:00] VITALS: BP 162/73
[2017-11-03] MEDS: ATORVASTATIN 10 MG TABLET PO SCH (20:51)
[2017-11-04] MEDS: DILTIAZEM 30 MG TABLET PO SCH ×2 (00:09→06:03)
[2017-11-04 00:12] VITALS: BP 123/70
[2017-11-04 07:32] VITALS: BP 122/55
[2017-11-04] MEDS: ANORO ELLIPTA 62.5 MCG/25 MCG HOMEINH SCH (09:00)
[2017-11-04] MEDS ORDERED: MEGESTROL ORAL.SUSP 40 MG/ML PO SCH (09:00)
[2017-11-04] MEDS: SENNA/DOCUSATE TABLET PO SCH (09:00)
[2017-11-04] MEDS ORDERED: DILTIAZEM 120 MG CAP.ER.24H PO SCH (09:00)
[2017-11-04] MEDS: ALPRazolam 1MG TABLET PO PRN (09:05)
[2017-11-04] MEDS: CARVEDILOL 12.5 MG TABLET PO SCH (09:05)
[2017-11-04] MEDS: IRON SUCROSE COMPLEX 100MG/5ML IV SCH (09:05)
[2017-11-04] MEDS: ALBUTEROL/IPRATROPIUM 2.5MG/0.5MG, 3 ML NPPB SCH (09:25)
[2017-11-04 09:40] LABS: ALBUMIN 2.2 g/dL (3.4-5.0); ANION GAP 4 mmol/L (5-15); CALCIUM 8.5 mg/dL (8.5-10.1); CHLORIDE 105 mmol/L (98-107); CREATININE 0.84 mg/dL (0.55-1.02)
[2017-11-04 10:03] LABS: BASOPHILS # (AUTO) 0.02 x10^3/uL (0-0.1); BASOPHILS % (AUTO) 0 % (0-1); EOSINOPHILS # (AUTO) 0.25 x10^3/uL (0-0.4); EOSINOPHILS % (AUTO) 2 % (1-7); LYMPHOCYTES # (AUTO) 0.97 x10^3/uL (1-3.4); LYMPHOCYTES % (AUTO) 8 % (22-44); MD NO; MEAN CORPUSCULAR HEMOGLOBIN 31.5 pg (27.0-34.8); MEAN CORPUSCULAR VOLUME 95.7 fL (80-100); MEAN PLATELET VOLUME 8.2 fL (7.4-10.4); MONOCYTES # (AUTO) 0.66 x10^3/uL (0.2-0.8); MONOCYTES % (AUTO) 5 % (2-9); NEUTROPHILS # (AUTO) 11.05 x10^3/uL (1.8-6.8); NEUTROPHILS % (AUTO) 85 % (42-75); PLATELET COUNT 244 x10^3/uL (130-400); RED CELL DISTRIBUTION WIDTH 17.7 % (9.6-15.2)
[2017-11-04] MEDS ORDERED: DILT120C9 PO (10:55)
[2017-11-04] MEDS ORDERED: FERR324T8 PO (10:55)
== END 2017-11-04 12:38 | disposition home health service (06) | DRG 640 ==
LOC: ED 18:14 → EDIP 18:47 → 4EST 19:54 → 4WST 10-31 19:47 → DCLOUNGE 11-04 12:27
PROVIDERS: ADMIT Internal Medicine; ATTEND Internal Medicine
PROC: 30233N1 Transfusion of Nonautologous Red Blood Cells into Peripheral Vein, Percutaneous Approach (ICD-10-PCS; principal; 2017-11-02)
DX: E87.5 Hyperkalemia (principal); N17.0 Acute kidney failure with tubular necrosis; E44.0 Moderate protein-calorie malnutrition; I47.1 Supraventricular tachycardia; J81.1 Chronic pulmonary edema; J96.10 Chronic respiratory failure, unspecified whether with hypoxia or hypercapnia; Z68.1 Body mass index [BMI] 19.9 or less, adult; C34.90 Malignant neoplasm of unspecified part of unspecified bronchus or lung; D72.829 Elevated white blood cell count, unspecified; F32.9 Major depressive disorder, single episode, unspecified; R73.9 Hyperglycemia, unspecified; E78.5 Hyperlipidemia, unspecified; F41.9 Anxiety disorder, unspecified; I10 Essential (primary) hypertension; K21.9 Gastro-esophageal reflux disease without esophagitis; D64.9 Anemia, unspecified; J44.9 Chronic obstructive pulmonary disease, unspecified; Z99.81 Dependence on supplemental oxygen; Z87.891 Personal history of nicotine dependence; Z90.710 Acquired absence of both cervix and uterus; Z90.89 Acquired absence of other organs; Z92.21 Personal history of antineoplastic chemotherapy; Z92.3 Personal history of irradiation; Z79.899 Other long term (current) drug therapy
CPT/HCPCS: 36415; 36430; 71045; 80048; 80053; 82040; 82728; 82962; 83540; 83550; 83735; 84100; 84132; 84466; 84484; 85014; 85018; 85025; 85610; 85730; 86850; 86900; 86923; 93005; 94640; 96361; 96374; 96375; J1756; J1815; J7613; J7620; J7644; J1940; J3475; J7030; P9040